=== PATIENT | female | born 1975 | race Caucasian/White ===

== ENCOUNTER 2017-03-20 19:57 | Emergency (ER) | payer SELFPAY ==
[~2017-03-20] VITALS: Ht 175.3 cm; Wt 108.1 kg
[2017-03-20 20:13] VITALS: BP 146/105
== END 2017-03-21 00:29 | disposition left against medical advice (07) ==
LOC: EME 19:57
DX: Z53.21 Procedure and treatment not carried out due to patient leaving prior to being seen by health care provider (principal)
CPT/HCPCS: 81003; 84703